=== PATIENT | female | born 1980 | race Caucasian/White ===

== ENCOUNTER 2020-04-07 10:59 | Inpatient (IN) | payer OTHER, SELFPAY ==
[2020-04-07 11:43] VITALS: BP 127/86; PULSE 76; RESP 18; TEMP 37.1; O2SAT 98; BMI 25.7
--- NOTE | 2020-04-07 11:46 | ED_ITS ---
HPI - Psych General Chief Complaint: Psychiatric Symptoms Stated Complaint: Crisis Time Seen by Provider: 04/07/20 11:46 Source: patient Mode of arrival: ambulatory Limitations: no limitations History of Present Illness MD complaint: feels depressed and anxiety Onset (ago): week(s) (few) Duration: constant History of same: Yes Relieving factors: none Exacerbating factors: none Context: significant life stressor Associated psychiatric symptoms: depression Associated symptoms: denies other symptoms Treatments prior to arrival: none Related Data Allergies Allergy/AdvReac Type Severity Reaction Status Date / Time bee pollen [BEE STINGS] Allergy Unknown ANAPHYLAXIS Unverified 02/05/20 15:41 Sulfa (Sulfonamide Allergy Unknown HIVES Unverified 02/05/20 15:41 Antibiotics) [SULFA (SULFONAMIDE ANTIBIOTICS)] Review of Systems Review of Systems: Constitutional : No Fever, No Chills ENT/Mouth : No Ear Pain, No Nasal Congestion, No sore throat Eyes: No Eye Pain, No Swelling, No Redness Cardiovascular : No Chest Pain, No SOB Respiratory : No Cough, No Sputum, No Dyspnea Gastrointestinal : No Nausea, No Vomiting, No Diarrhea, No Hematochezia, No Melena Genitourinary : No Dysuria, No Urinary Frequency, No Hematuria Musculoskeletal : No Myalgias Skin : No Skin Lesions, No rash Neuro : No Weakness, No Numbness, No Paresthesias, No Dizziness, No Headache Psych : positive Anxiety, positive Depression, no SI/HI Heme/Lymph: No Lymphadenopathy Endocrine : No Polyuria, No Polydipsia All other systems reviewed and are negative COUNT INCLUDES [facility] Past Medical History Medical History Anxiety Bowel obstruction Depression Surgical History History of hysterectomy Social History Social History (Updated 04/07/20 @ 12:04 by Ingris Gold DO) Smoking Status: Never smoker Smoked in Last 30 Days: No Use of substances other than those prescribed or required for medical reasons: No Advance Directives: No Advance Directives Information Provided: Yes Physical Exam Vital Signs: Vital Signs: Last Vital Signs Temp 98.8 F 04/07/20 11:43 Pulse 76 04/07/20 11:43 Resp 18 04/07/20 11:43 BP 127/86 04/07/20 11:43 Pulse Ox 98 04/07/20 11:43 Body Mass Index 25.7 Appearance: Alert. Oriented X3. No acute distress. Anxious Eyes: Pupils equal, round and reactive to light. ENT: Pharynx normal. Neck: Normal inspection. Neck supple. CVS: Normal heart rate and rhythm. Pulses normal. Respiratory: No respiratory distress. Breath sounds normal. Abdomen: Soft and nontender. Skin: Skin warm and dry. Normal skin color. Normal skin turgor. Extremities: No lower extremity edema. No calf ttp Neuro: Oriented X 3. No motor deficit. No sensory deficit. CN 2 -12 intact Psych: anxious depressed, no SI/HI, no AH/VH Course Course Course Narrative: plan for admit to MDM - Psych MDM Narrative Medical decision making narrative: 40 yo female with depression and anxiety here with severe anxiety and depression impacting her life and work - referred by CARE team at this time will obtain labs and consult CARE team Lab Data Result diagrams: 04/07/20 13:51 04/07/20 13:51 Discharge Plan Discharge Clinical Impression: Depression Patient Disposition: Admitted As Inpatient
[2020-04-07 14:04] LABS: MANUAL DIFF FLAG NO
[2020-04-07 14:20] LABS: Basophils Percent Auto 0.4 % (0-2); Eosinophils Absolute Auto 0.3 X10*3/uL (0.0-0.4); Eosinophils Percent Auto 3.4 % (0-4); Hematocrit 39.9 % (37-47); Hemoglobin 13.4 g/dl (12.0-16.0); Imm Gran Abs Auto 0.02 X10*3/uL (0.00-0.03); Imm Gran Pct Auto 0.3 % (0.0-0.4); Lymphocytes Absolute Auto 1.8 X10*3/uL (1.2-4.9); Mean Corpuscular HGB Conc 33.6 g/dl (31.0-35.0); Mean Corpuscular Volume 89.3 fL (80-98); Monocytes Absolute Auto 0.3 X10*3/uL (0.1-1.2); Monocytes Percent Auto 4.3 % (2-11); Neutrophils Absolute Auto 5.4 X10*3/uL (2.0-8.3); Neutrophils Percent Auto 68.6 % (45-73); Platelet Count 342 X10*3/uL (160-400); Red Blood Count 4.47 X10*6/uL (4.20-5.50); Red Cell Distribution Width 11.5 % (11.0-16.0); White Blood Count 7.9 X10*3/uL (4.8-10.8)
[2020-04-07 14:35] LABS: Anion Gap 12 (12-20); Blood Urea Nitrogen 6 mg/dL (9-16); Calcium 9.3 mg/dL (8.4-10.2); Carbon Dioxide 26 mmol/L (22-29); Chloride 100 mmol/L (96-108); Creatinine Clr Calc Pharmacy 111.8; Estimated Glomerular Filt Rate > 60; Glucose Random 138 mg/dL (60-115); Potassium 3.8 mmol/l (3.3-5.1); Sodium 134 mmol/L (135-145)
[2020-04-07 14:37] LABS: Alanine Aminotransferase 30 U/L (0-31); Albumin Level 4.1 g/dL (3.5-5.0); Alkaline Phosphatase 78 U/L (39-117); Aspartate Amino Transferase 18 U/L (5-31); Bilirubin Direct < 0.2 mg/dL (0.0-0.5); Bilirubin Total 0.4 mg/dL (0.0-1.0); Total Protein 6.3 g/dL (6.5-8.0)
[2020-04-07 14:42] VITALS: BP 101/66; PULSE 64; RESP 16; O2SAT 97
[2020-04-07 14:58] LABS: Thyroid Stimulating Hormone < 0.01 uIU/mL (0.32-4.0)
[2020-04-07 15:02] LABS: COVID-19 Test Negative (Negative)
[2020-04-07 16:05] VITALS: BP 110/64; PULSE 67; RESP 18; TEMP 37; O2SAT 98
--- NOTE | 2020-04-07 16:59 | PC.NURSE ---
Pt transferred from the main ED. Report received from Arturo. Pt cooperative with changeover. In room, calm, reading. Awaiting transfer to
--- NOTE | 2020-04-07 18:15 | PC.NURSE ---
Requesting normally prescribed PRN of gabapentin 200 MG PO for anxiety, provider notified.
[2020-04-07] MEDS: Gabapentin 100 MG CAPSULE 200 MG PO ×2 (18:35→22:25)
--- NOTE | 2020-04-07 18:38 | PC.NURSE ---
Pt agitated, punching dresser in room, I am going to loose it if I don't get any PRN medication . Given gabapentin. Currently sitting on bed. Waiting transfer to .
--- NOTE | 2020-04-07 19:04 | PC.NURSE ---
Report received. PT is sitting quietly on her bed. Waiting to be transferred to .
[2020-04-07 20:03] LABS: Amphetamine Screen Urine Not Detected (Not Detect); Barbiturates, Urine Not Detected (Not Detect); Benzodiazepines Screen Urine Not Detected (Not Detect); Cannabinoid Screen Urine POSITIVE (Not Detect); Cocaine Screen Urine Not Detected (Not Detect); Opiate Screen Urine Not Detected (Not Detect); Phencyclidine Screen Urine Not Detected (Not Detect)
[2020-04-07 22:00] LABS: Cholesterol 216 mg/dL; HDL Cholesterol 68 mg/dL; Triglycerides 433 mg/dL
[2020-04-07 22:20] LABS: TSH reflex Free T4 0.01 mIU/mL (0.32-4.0)
[2020-04-07] MEDS: Lithium Carbonate ER 450 MG TABLET.ER 900 MG PO (22:24)
[2020-04-07] MEDS: Temazepam 15 MG CAPSULE 30 MG PO (22:25)
--- NOTE | 2020-04-07 22:58 | PC.ADMIT ---
this is one of several admissions for this 40year old female. legal cv. dx bipolar d/o. was referred to by the care team, nurse to nurse collaterol information obtained prior to admission. 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 hx hysterectomy and bowel obstruction in past. identifies the use of marijuana on a weekly basis, no other drug/alcohol issues. presented as anxious and self described as ''raw'' reports high level of anxiety, impaired thinking that is interfering with functioning at work but was cooperative to admission assessment. no si or self harm attempt prior to admission. oriented to unit. safety tool completed. declined flu shot as she has already received this season.
[2020-04-08] MEDS: hydrOXYzine HCL 50 MG TABLET PO (01:28)
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
[2020-04-08 06:15] VITALS: BP 117/63; PULSE 70; RESP 16; TEMP 36.4; O2SAT 98
[2020-04-08 07:00] VITALS: BMI 25.3
[2020-04-08 08:41] LABS: Estimated Average Glucose 97 mg/dL
[2020-04-08 08:57] LABS: Alanine Aminotransferase 30 U/L (0-31); Albumin Level 3.9 g/dL (3.5-5.0); Alkaline Phosphatase 74 U/L (39-117); Anion Gap 11 (12-20); Aspartate Amino Transferase 19 U/L (5-31); Bilirubin Total 0.5 mg/dL (0.0-1.0); Blood Urea Nitrogen 7 mg/dL (9-16); Calcium 9.3 mg/dL (8.4-10.2); Carbon Dioxide 30 mmol/L (22-29); Chloride 102 mmol/L (96-108); Creatinine Clr Calc Pharmacy 119.3; Estimated Glomerular Filt Rate > 60; Glucose Fasting 97 mg/dL (60-99); Sodium 139 mmol/L (135-145); Total Protein 6.2 g/dL (6.5-8.0)
[2020-04-08] MEDS: estradioL 0.5 MG TABLET 2 MG PO (08:59)
[2020-04-08] MEDS: Lithium Carbonate ER 450 MG TABLET.ER 900 MG PO ×2 (09:00→19:58)
[2020-04-08 09:01] LABS: Cholesterol 187 mg/dL; Glucose Fasting 97 mg/dL (60-99); HDL Cholesterol 59 mg/dL; LDL Cholesterol Calculated 75 mg/dl; Triglycerides 266 mg/dL
[2020-04-08] MEDS: LORazepam 1 MG TABLET PO ×4 (11:02→19:59)
[2020-04-08] MEDS: Gabapentin 100 MG CAPSULE 200 MG PO ×2 (13:50→19:59)
[2020-04-08 18:00] VITALS: BP 128/78; PULSE 90; TEMP 36.9
[2020-04-08] MEDS: Benztropine Mesylate 0.5 MG TABLET 1 MG PO (19:58)
[2020-04-08] MEDS: HaloperidoL 5 MG TABLET PO (19:59)
--- NOTE | 2020-04-09 05:11 | P.PNPSI_ITS ---
Subjective Subjective Date of Service: 04/09/20 Reason For Visit: Crisis Subjective Notes: Conditional Voluntary Interim History: Calmer and less irritable despite milieu. Keeping to herself as advised. Feels Haldol and Loraz are helpful. Feels brittle with marked i-p sensitivity. Lipid profile improved. Li was high so a,m dose reduced. Wants to avoid ECT Medication Compliance: Yes Side effects from medications: No Attending Groups: Yes Review of Systems Review of Systems Constitutional : No Fever, No Chills ENT/Mouth : No Ear Pain, No Nasal Congestion, No sore throat Eyes: No Eye Pain, No Swelling, No Redness Cardiovascular : No Chest Pain, No SOB Respiratory : No Cough, No Sputum, No Dyspnea Gastrointestinal : No Nausea, No Vomiting, No Diarrhea, No Hematochezia, No Melena Genitourinary : No Dysuria, No Urinary Frequency, No Hematuria Musculoskeletal : No Myalgias Skin : No Skin Lesions, No rash Neuro : No Weakness, No Numbness, No Paresthesias, No Dizziness, No Headache Psych : positive Anxiety, positive Depression, no SI/HI Heme/Lymph: No Lymphadenopathy Endocrine : No Polyuria, No Polydipsia All other systems reviewed and are negative Yes all other systems are reviewed and are negative Mental Status Exam Mental Status Exam Patient Appearance: Disheveled Patient Orientation: Person, Place, Time and Situation Level of Consciousness: Awake Patient Behavior: Distractible Mood Description: Anxious, Labile and Apprehensive Affect Description: Labile and Sad Patient Cognition Impaired: No Ability to Follow Directions: Good Memory Description: Intact Diagnostics Vital Signs (24Hr): Vital Signs - 24 hr 04/08/20 06:15 04/08/20 18:00 Temperature 97.5 F 98.5 F Pulse Rate 70 90 Respiratory Rate 16 Blood Pressure 117/63 128/78 Pulse Oximetry 98 Body Mass Index 25.3 Labs Results: 04/07/20 13:51 04/08/20 07:56 Labs: Laboratory Results - last 48 hr 04/07/20 04/07/20 04/07/20 13:51 13:51 13:51 WBC 7.9 RBC 4.47 Hgb 13.4 Hct 39.9 MCV 89.3 MCH 30.0 MCHC 33.6 RDW 11.5 Plt Count 342 MPV 9.0 L Immature Gran % (Auto) 0.3 Neut % (Auto) 68.6 Lymph % (Auto) 23.0 [place] % (Auto) 4.3 Eos % (Auto) 3.4 Baso % (Auto) 0.4 Lymph # (Auto) 1.8 [place] # (Auto) 0.3 Eos # (Auto) 0.3 Baso # (Auto) 0.0 Abs Immat Gran (auto) 0.02 Absolute Neuts (auto) 5.4 Absolute Nucleated RBC 0.000 Nucleated RBC % (auto) 0.0 Sodium 134 L Potassium 3.8 Chloride 100 Carbon Dioxide 26 Anion Gap 12 BUN 6 L Creatinine 0.64 Estim Creat Clear Calc 111.8 Estimated GFR > 60 Random Glucose 138 H Fasting Glucose Estimat Average Glucose Hemoglobin A1c % Calcium 9.3 Total Bilirubin 0.4 Direct Bilirubin < 0.2 AST 18 ALT 30 Alkaline Phosphatase 78 Total Protein 6.3 L Albumin 4.1 Triglycerides Cholesterol LDL Cholesterol, Calc HDL Cholesterol TSH < 0.01 L Free T4 Urine Opiates Screen Ur Barbiturates Screen Ur Phencyclidine Scrn Ur Amphetamines Screen U Benzodiazepines Scrn [place] Urine Cocaine Screen U Marijuana (THC) Screen COVID-19 ([place]) COVID-[employer] 04/07/20 04/07/20 04/07/20 14:30 19:35 21:25 WBC RBC Hgb Hct MCV MCH MCHC RDW Plt Count MPV Immature Gran % (Auto) Neut % (Auto) Lymph % (Auto) [place] % (Auto) Eos % (Auto) Baso % (Auto) Lymph # (Auto) [place] # (Auto) Eos # (Auto) Baso # (Auto) Abs Immat Gran (auto) Absolute Neuts (auto) Absolute Nucleated RBC Nucleated RBC % (auto) Sodium Potassium Chloride Carbon Dioxide Anion Gap BUN Creatinine Estim Creat Clear Calc Estimated GFR Random Glucose Fasting Glucose Estimat Average Glucose Hemoglobin A1c % Calcium Total Bilirubin Direct Bilirubin AST ALT Alkaline Phosphatase Total Protein Albumin Triglycerides 433 Cholesterol 216 LDL Cholesterol, Calc TNP HDL Cholesterol 68 TSH Free T4 Urine Opiates Screen Not Detected Ur Barbiturates Screen Not Detected Ur Phencyclidine Scrn Not Detected Ur Amphetamines Screen Not Detected U Benzodiazepines Scrn Not Detected [place] Urine Cocaine Screen Not Detected U Marijuana (THC) Screen POSITIVE H COVID-19 ([place]) Negative COVID-19 [employer] See Note 04/07/20 04/07/20 04/08/20 21:25 21:25 07:56 WBC RBC Hgb Hct MCV MCH MCHC RDW Plt Count MPV Immature Gran % (Auto) Neut % (Auto) Lymph % (Auto) [place] % (Auto) Eos % (Auto) Baso % (Auto) Lymph # (Auto) [place] # (Auto) Eos # (Auto) Baso # (Auto) Abs Immat Gran (auto) Absolute Neuts (auto) Absolute Nucleated RBC Nucleated RBC % (auto) Sodium 139 Potassium 4.0 Chloride 102 Carbon Dioxide 30 H Anion Gap 11 L BUN 7 L Creatinine 0.60 Estim Creat Clear Calc 119.3 Estimated GFR > 60 Random Glucose Fasting Glucose 97 Estimat Average Glucose Hemoglobin A1c % Calcium 9.3 Total Bilirubin 0.5 Direct Bilirubin AST 19 ALT 30 Alkaline Phosphatase 74 Total Protein 6.2 L Albumin 3.9 Triglycerides Cholesterol LDL Cholesterol, Calc HDL Cholesterol TSH 0.01 L Free T4 1.30 Urine Opiates Screen Ur Barbiturates Screen Ur Phencyclidine Scrn Ur Amphetamines Screen U Benzodiazepines Scrn [place] 1.00 Urine Cocaine Screen U Marijuana (THC) Screen COVID-19 ([place]) COVID-[employer] 04/08/20 04/08/20 04/08/20 07:56 07:56 07:56 WBC RBC Hgb Hct MCV MCH MCHC RDW Plt Count MPV Immature Gran % (Auto) Neut % (Auto) Lymph % (Auto) [place] % (Auto) Eos % (Auto) Baso % (Auto) Lymph # (Auto) [place] # (Auto) Eos # (Auto) Baso # (Auto) Abs Immat Gran (auto) Absolute Neuts (auto) Absolute Nucleated RBC Nucleated RBC % (auto) Sodium Potassium Chloride Carbon Dioxide Anion Gap BUN Creatinine Estim Creat Clear Calc Estimated GFR Random Glucose Fasting Glucose 97 Estimat Average Glucose 97 Hemoglobin A1c % 5.0 Calcium Total Bilirubin Direct Bilirubin AST ALT Alkaline Phosphatase Total Protein Albumin Triglycerides 266 Cholesterol 187 LDL Cholesterol, Calc 75 HDL Cholesterol 59 TSH Free T4 Urine Opiates Screen Ur Barbiturates Screen Ur Phencyclidine Scrn Ur Amphetamines Screen U Benzodiazepines Scrn [place] 1.30 H Urine Cocaine Screen U Marijuana (THC) Screen COVID-19 ([place]) [employer] Medications Medications Current Medications Generic Name Dose Route Start Last Admin Trade Name Freq PRN Reason Stop Dose Admin Acetaminophen 650 mg 04/07/20 20:08 Acetaminophen 325 Mg Tablet PO Q6H PRN Headache/Pain Mild Scale (1-3) Al Hydroxide/Mg Hydroxide 30 ml 04/07/20 20:08 Magnesium Hydrox/Alum Hydrox 30 Ml Oral.Susp PO Q6H PRN Heartburn/Nausea Benztropine Mesylate 1 mg 04/08/20 21:00 04/08/20 19:58 Benztropine Mesylate 0.5 Mg Tablet PO 1 mg BID [facility] Administration Estradiol 2 mg 04/08/20 09:00 04/08/20 08:59 Estradiol 0.5 Mg Tablet PO 2 mg DAILY [facility] Administration Gabapentin 200 mg 04/08/20 15:00 04/08/20 19:59 Gabapentin 100 Mg Capsule PO 200 mg TID [facility] Administration Haloperidol 5 mg 04/08/20 21:00 04/08/20 19:59 Haloperidol 5 Mg Tablet PO 5 mg BID [facility] Administration Hydroxyzine HCl 50 mg 04/08/20 00:03 04/08/20 01:28 Hydroxyzine Hcl 50 Mg Tablet PO 50 mg BEDTIME PRN Administration Insomnia [place] Carbonate 900 mg 04/07/20 21:00 04/08/20 19:58 [place] Carbonate Er 450 Mg Tablet.Er PO 900 mg BID [facility] Administration Lorazepam 1 mg 04/08/20 09:40 04/08/20 18:33 Lorazepam 1 Mg Tablet PO 1 mg Q4H PRN Administration Anxiety Lorazepam 1 mg 04/08/20 11:10 04/08/20 19:59 Lorazepam 1 Mg Tablet PO 1 mg BID [facility] Administration Magnesium Hydroxide 30 ml 04/07/20 20:08 Milk Of Magnesia 30 Ml Oral.Susp PO DAILY PRN Constipation Pat Own Med ( 1 each 04/08/20 21:00 04/08/20 19:59 Asenapine 5mg) PO 1 each BID [facility] Administration Non-Formulary Medication 1 applic 04/07/20 20:32 Estradiol VAGINAL 2XW [facility] Temazepam 30 mg 04/07/20 20:36 04/07/20 22:25 Temazepam 15 Mg Capsule PO 30 mg BEDTIME PRN Administration Sleep Allergies Allergies Allergy/AdvReac Type Severity Reaction Status Date / Time bee pollen [BEE STINGS] Allergy Unknown ANAPHYLAXIS Verified 04/07/20 18:32 Sulfa (Sulfonamide Allergy Unknown HIVES Verified 04/07/20 18:32 Antibiotics) [SULFA (SULFONAMIDE ANTIBIOTICS)] trazodone Allergy Unknown Unknown Verified 04/08/20 00:09 Assessment & Plan Assessment & Plan (1) Bipolar affective, mixed, severe: Status: Acute Code(s): F31.63 - Bipolar disorder, current episode mixed, severe, without psychotic features Assessment and Plan: Ct current meds. Discuss case w Dr Atkins. Greater than 50% of the session was spent on counseling and/or coordination of care
[2020-04-09 06:10] VITALS: BP 104/63; PULSE 62; RESP 16; TEMP 36.2; O2SAT 98
[2020-04-09] MEDS: estradioL 0.5 MG TABLET 2 MG PO (08:37)
[2020-04-09] MEDS: Gabapentin 100 MG CAPSULE 200 MG PO ×3 (08:38→20:01)
[2020-04-09] MEDS: Benztropine Mesylate 0.5 MG TABLET 1 MG PO ×2 (08:39→20:01)
[2020-04-09] MEDS: HaloperidoL 5 MG TABLET PO ×2 (08:39→20:01)
[2020-04-09] MEDS: Lithium Carbonate ER 300 MG TABLET.ER 600 MG PO (08:44)
[2020-04-09] MEDS: LORazepam 1 MG TABLET PO ×4 (08:44→20:01)
[2020-04-09 18:00] VITALS: BP 113/62; PULSE 84; TEMP 36.8
[2020-04-09] MEDS: Lithium Carbonate ER 450 MG TABLET.ER 900 MG PO (20:01)
[2020-04-09] MEDS: Temazepam 15 MG CAPSULE 30 MG PO ×2 (21:32→22:24)
[2020-04-10 07:21] VITALS: BP 107/64; PULSE 68; TEMP 36.2
[2020-04-10] MEDS: estradioL 0.5 MG TABLET 2 MG PO (09:14)
[2020-04-10] MEDS: LORazepam 1 MG TABLET PO ×3 (09:15→20:27)
[2020-04-10] MEDS: Benztropine Mesylate 0.5 MG TABLET 1 MG PO ×2 (09:15→20:27)
[2020-04-10] MEDS: HaloperidoL 5 MG TABLET PO ×2 (09:15→20:26)
[2020-04-10] MEDS: Gabapentin 100 MG CAPSULE 200 MG PO ×3 (09:15→20:27)
[2020-04-10] MEDS: Lithium Carbonate ER 300 MG TABLET.ER 600 MG PO (09:15)
--- NOTE | 2020-04-10 11:35 | HO.PSYCHPN ---
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 Pt has insight to say when she's depressed she has trouble processing information and can misinterpret things resulting in irritability. At one point pt said that no one cares she rescinded this remark but said that while others may care, it does little to help. Pt reports she was feeling overmedicated and asked her outpt provider Dr. Atkins, to lower her meds; currently she thinks her medications might be too low and says this is the least medications i have every been on. She would like to get back on Levothyroxine; travel writer explained TSH/Lab work but pt reports she does not have a thyroid disorder (and none is listed in problem list); travel writer asked if this med was being used as an augmentation for depression but she is unsure. Pt asks for something for daytime anxiety and agrees to adding Gabapentin prn (she denies any hx of substance abuse including benzodiazapines); otherwise, she would like to continue to use the Haldol/ativan/benadryl combo she discussed with her Dr. Chand. Medication Compliance: Yes Side effects from medications: No Attending Groups: Yes Review of Systems Review of Systems No all other systems are reviewed and are negative, unobtainable due to endotracheal tube, Unobtainable due to mental condition, Unobtainable due to mental status or Other Mental Status Exam Mental Status Exam Patient Appearance: Well Grooomed and Appropriate Patient Orientation: Person, Place, Time and Situation Level of Consciousness: Awake and Appropriate Patient Behavior: Appropriate, Cooperative, Anxious and Good Eye Contact Mood Description: Constricted, Anxious and Angry Affect Description: Constricted Patient Cognition Impaired: Yes Ability to Follow Directions: Excellent Speech Pattern: Clear Hallucinations: None Delusions: Not Present Thought Process: Intact, Goal Oriented and Linear Thought Content: positive for Intact and positive for Circumstantial Depressive Symptoms: Increased Anxiety, Insomnia, Diff. Making Decisions, Increased Irritability and Hopelessness Judgement: Fair Judgement and Insight: appears intact Diagnostics Vital Signs (24Hr): Vital Signs - 24 hr 04/09/20 18:00 04/10/20 07:21 Temperature 98.3 F 97.2 F Pulse Rate 84 68 Blood Pressure 113/62 107/64 Body Mass Index 25.3 Labs Results: 04/07/20 13:51 04/08/20 07:56 Medications Medications Current Medications Generic Name Dose Route Start Last Admin Trade Name Freq PRN Reason Stop Dose Admin Acetaminophen 650 mg 04/07/20 20:08 Acetaminophen 325 Mg Tablet PO Q6H PRN Headache/Pain Mild Scale (1-3) Al Hydroxide/Mg Hydroxide 30 ml 04/07/20 20:08 Magnesium Hydrox/Alum Hydrox 30 Ml Oral.Susp PO Q6H PRN Heartburn/Nausea Benztropine Mesylate 1 mg 04/08/20 21:00 04/10/20 09:15 Benztropine Mesylate 0.5 Mg Tablet PO 1 mg BID AMARIS Administration Estradiol 2 mg 04/08/20 09:00 04/10/20 09:14 Estradiol 0.5 Mg Tablet PO 2 mg DAILY AMARIS Administration Gabapentin 200 mg 04/08/20 15:00 04/10/20 09:15 Gabapentin 100 Mg Capsule PO 200 mg TID AMARIS Administration Haloperidol 5 mg 04/08/20 21:00 04/10/20 09:15 Haloperidol 5 Mg Tablet PO 5 mg BID AMARIS Administration Hydroxyzine HCl 50 mg 04/08/20 00:03 04/08/20 01:28 Hydroxyzine Hcl 50 Mg Tablet PO 50 mg BEDTIME PRN Administration Insomnia [place] Carbonate 900 mg 04/09/20 21:00 04/09/20 20:01 [place] Carbonate Er 450 Mg Tablet.Er PO 900 mg BEDTIME AMARIS Administration [place] Carbonate 600 mg 04/09/20 09:00 04/10/20 09:15 [place] Carbonate Er 300 Mg Tablet.Er PO 600 mg DAILY AMARIS Administration Lorazepam 1 mg 04/08/20 09:40 04/09/20 19:24 Lorazepam 1 Mg Tablet PO 1 mg Q4H PRN Administration Anxiety Lorazepam 1 mg 04/08/20 11:10 04/10/20 09:15 Lorazepam 1 Mg Tablet PO 1 mg BID AMARIS Administration Magnesium Hydroxide 30 ml 04/07/20 20:08 Milk Of Magnesia 30 Ml Oral.Susp PO DAILY PRN Constipation Pat Own Med ( 1 each 04/08/20:00 04/10/20 09:14 Asenapine 5mg) PO 1 each BID AMARIS Administration Non-Formulary Medication 1 applic 04/07/20 20:32 Estradiol VAGINAL 2XW AMARIS Temazepam 30 mg 04/07/20 20:36 11 22:24 Temazepam 15 Mg Capsule PO 30 mg BEDTIME PRN Administration Sleep Allergies Allergies Allergy/AdvReac Type Severity Reaction Status Date / Time bee pollen [BEE STINGS] Allergy Unknown ANAPHYLAXIS Verified 04/07/20 18:32 Sulfa (Sulfonamide Allergy Unknown HIVES Verified 04/07/20 18:32 Antibiotics) [SULFA (SULFONAMIDE ANTIBIOTICS)] trazodone Allergy Unknown Unknown Verified 04/08/20 00:09 Assessment & Plan 40 yo female with hx of bipolar depression Pt remains with depression and anxiety but is stable -Will add Gabapentin 100mg TID prn; pt says 200mg TID scheduled does help some, so will add low dose prn which can be increased further as clinically determined -Will continue to hold levothyroxine; it is likely that this is being used as an augmentor for depression; review of notes indicates primary team is discussing medication regimen with pt's outpt psychiatrist Dr. Atkins and so will thus defer -Otherwise, continue with Primary teams treatment plan
[2020-04-10 16:42] VITALS: BP 138/78; PULSE 78; TEMP 36.8
[2020-04-10 18:00] VITALS: BP 125/90; PULSE 89; TEMP 36.8
[2020-04-10] MEDS: Lithium Carbonate ER 450 MG TABLET.ER 900 MG PO (20:27)
[2020-04-10] MEDS: Temazepam 15 MG CAPSULE 30 MG PO (20:36)
[2020-04-10] MEDS: hydrOXYzine HCL 50 MG TABLET PO (21:28)
[2020-04-11] MEDS: LORazepam 1 MG TABLET PO ×5 (00:44→20:24)
[2020-04-11 06:00] VITALS: BP 106/61; PULSE 60; TEMP 36.6
[2020-04-11] MEDS: Lithium Carbonate ER 300 MG TABLET.ER 600 MG PO (08:57)
[2020-04-11] MEDS: HaloperidoL 5 MG TABLET PO ×4 (08:58→20:26)
[2020-04-11] MEDS: estradioL 0.5 MG TABLET 2 MG PO (08:58)
[2020-04-11] MEDS: Benztropine Mesylate 0.5 MG TABLET 1 MG PO ×2 (08:58→20:22)
[2020-04-11] MEDS: Gabapentin 100 MG CAPSULE 200 MG PO ×6 (08:58→20:24)
--- NOTE | 2020-04-11 10:31 | P.PNPSI_ITS ---
Subjective Subjective Date of Service: 04/11/20 Reason For Visit: Crisis Interim History: Vitals reviewed: WNL Labs reviewed Pt seen, chart reviewed and case discussed with nursing staff Pt is pleasant, calm and cooperative on approach Pt reports she slept better last night. She says she is still angry, however and shared that she was adopted and suspects that it's likely due to past ch ildhood/developmental trauma. Pt shared more about struggles at work and how she frequently gets triggered. She also agreed that she's accomplished a lot in her life despite struggles and that pushing forward is sometimes the only thing one can do. She continues to demonstrate insight explaining how her depression/anxiety makes it hard to think clearly sometimes. Pt says that prn gabapentin 100mg did not do much so agrees to increase to 200mg. Staff reports that pt walked in her sleep last night and used toliet in peers bathroom; pt has no memory of this. Medication Compliance: Yes Side effects from medications: No Attending Groups: Yes Mental Status Exam Mental Status Exam Patient Appearance: Well Grooomed and Appropriate Level of Consciousness: Awake and Appropriate Patient Behavior: Cooperative and Suspicious Mood Description: Angry Affect Description: Constricted Ability to Follow Directions: Good Speech Pattern: Clear and Appropriate Hallucinations: None Delusions: Not Present Thought Process: Intact and Linear Thought Content: positive for Intact, positive for Goal Oriented, positive for Linear and positive for Logical Judgement: Fair Judgement and Insight: appears intact Diagnostics Vital Signs (24Hr): Vital Signs - 24 hr 04/10/20 16:42 04/10/20 18:00 04/11/20 06:00 Temperature 98.2 F 98.2 F 97.8 F Pulse Rate 78 89 60 Blood Pressure 138/78 125/90 H 106/61 Body Mass Index 25.3 Labs Results: 04/07/20 13:51 04/08/20 07:56 Medications Medications Current Medications Generic Name Dose Route Start Last Admin Trade Name Freq PRN Reason Stop Dose Admin Acetaminophen 650 mg 04/07/20 20:08 Acetaminophen 325 Mg Tablet PO Q6H PRN Headache/Pain Mild Scale (1-3) Al Hydroxide/Mg Hydroxide 30 ml 04/07/20 20:08 Magnesium Hydrox/Alum Hydrox 30 Ml Oral.Susp PO Q6H PRN Heartburn/Nausea Benztropine Mesylate 1 mg 04/08/20 21:00 04/11/20 08:58 Benztropine Mesylate 0.5 Mg Tablet PO 1 mg BID AMARIS Administration Estradiol 2 mg 04/08/20 09:00 04/11/20 08:58 Estradiol 0.5 Mg Tablet PO 2 mg DAILY AMARIS Administration Gabapentin 200 mg 04/08/20 15:00 04/11/20 08:58 Gabapentin 100 Mg Capsule PO 200 mg TID AMARIS Administration Gabapentin 100 mg 04/10/20 11:33 Gabapentin 100 Mg Capsule PO TID PRN breakthrough anxiety Haloperidol 5 mg 04/08/20 21:00 04/11/20 08:58 Haloperidol 5 Mg Tablet PO 5 mg BID AMARIS Administration Hydroxyzine HCl 50 mg 04/08/20 00:03 04/10/20 21:28 Hydroxyzine Hcl 50 Mg Tablet PO 50 mg BEDTIME PRN Administration Insomnia [place] Carbonate 900 mg 04/09/20 21:00 04/10/20 20:27 [place] Carbonate Er 450 Mg Tablet.Er PO 900 mg BEDTIME AMARIS Administration [place] Carbonate 600 mg 04/09/20 09:00 04/11/20 08:57 [place] Carbon[place] Er 300 Mg Tablet.Er PO 600 mg DAILY AMARIS Administration Lorazepam 1 mg 04/08/20 09:40 04/11/20 00:44 Lorazepam 1 Mg Tablet PO 1 mg Q4H PRN Administration Anxiety Lorazepam 1 mg 04/08/20 11:10 04/11/20 08:58 Lorazepam 1 Mg Tablet PO 1 mg BID AMARIS Administration Magnesium Hydroxide 30 ml 04/07/20 20:08 Milk Of Magnesia 30 Ml Oral.Susp PO DAILY PRN Constipation Pat Own Med ( 1 each 04/08/20 21:00 04/11/20 08:57 Asenapine 5mg) PO 1 each BID AMARIS Administration Non-Formulary Medication 1 applic 04/07/20 20:32 Estradiol VAGINAL 2XW AMARIS Temazepam 30 mg 04/07/20 20:36 04/10/20 20:36 Temazepam 15 Mg Capsule PO 30 mg BEDTIME PRN Administration Sleep Allergies Allergies Allergy/AdvReac Type Severity Reaction Status Date / Time bee pollen [BEE STINGS] Allergy Unknown ANAPHYLAXIS Verified 04/07/20 18:32 Sulfa (Sulfonamide Allergy Unknown HIVES Verified 04/07/20 18:32 Antibiotics) [SULFA (SULFONAMIDE ANTIBIOTICS)] trazodone Allergy Unknown Unknown Verified 04/08/20 00:09 Assessment & Plan 40 yo female with hx of bipolar depression Pt remains with depression, anxiety, anger but is stable -Primary team to R/O Parasomnia -Increased prn Gabapentin to 200mg TID prn -Will continue to hold levothyroxine; it is likely that this is being used as an augmentor for depression; review of notes indicates primary team is discussing medication regimen with pt's outpt psychiatrist Dr. Atkins and so will thus defer -Otherwise, continue with Primary teams treatment plan Greater than 50% of the session was spent on counseling and/or coordination of care
[2020-04-11 18:00] VITALS: BP 122/84; PULSE 87; TEMP 36.2
[2020-04-11] MEDS: Lithium Carbonate ER 450 MG TABLET.ER 900 MG PO (20:23)
[2020-04-11] MEDS: Temazepam 15 MG CAPSULE 30 MG PO (21:03)
[2020-04-12] MEDS: LORazepam 1 MG TABLET PO ×6 (00:11→20:58)
[2020-04-12] MEDS: hydrOXYzine HCL 50 MG TABLET PO (00:11)
[2020-04-12] MEDS: HaloperidoL 5 MG TABLET PO ×6 (00:11→22:24)
[2020-04-12] MEDS: Gabapentin 100 MG CAPSULE 200 MG PO ×4 (01:50→20:57)
[2020-04-12 06:45] VITALS: BP 107/68; PULSE 59; RESP 16; TEMP 36.4
--- NOTE | 2020-04-12 07:51 | P.PNPSI_ITS ---
Subjective Subjective Reason For Visit: Crisis Interim History: Vitals reviewed: WNL Labs reviewed Pt seen, chart reviewed and case discussed with nursing staff Weekend was diificult. Experiences intense irritability, misinterprets staff interactions. SI + but no intent. No one cares/no one understands . I dont know if anything will help. Got angry as we discussed med choices. Later Case DW Dr Atkins: few good med options. Saphris taper if pt agrees. Ct Haldol/Loraz Review of Systems Review of Systems Constitutional : No Fever, No Chills ENT/Mouth : No Ear Pain, No Nasal Congestion, No sore throat Eyes: No Eye Pain, No Swelling, No Redness Cardiovascular : No Chest Pain, No SOB Respiratory : No Cough, No Sputum, No Dyspnea Gastrointestinal : No Nausea, No Vomiting, No Diarrhea, No Hematochezia, No Melena Genitourinary : No Dysuria, No Urinary Frequency, No Hematuria Musculoskeletal : No Myalgias Skin : No Skin Lesions, No rash Neuro : No Weakness, No Numbness, No Paresthesias, No Dizziness, No Headache Psych : positive Anxiety, positive Depression, no SI/HI Heme/Lymph: No Lymphadenopathy Endocrine : No Polyuria, No Polydipsia All other systems reviewed and are negative Yes all other systems are reviewed and are negative Mental Status Exam Mental Status Exam Patient Appearance: Well Grooomed and Appropriate Patient Orientation: Person, Place, Time and Situation Level of Consciousness: Awake and Appropriate Patient Behavior: Cooperative and Suspicious Mood Description: Angry Affect Description: Constricted Patient Cognition Impaired: Yes Ability to Follow Directions: Good Speech Pattern: Clear and Appropriate Memory Description: Intact Diagnostics Vital Signs (24Hr): Vital Signs - 24 hr 04/11/20 18:00 04/12/20 06:45 Temperature 97.2 F 97.6 F Pulse Rate 87 59 Respiratory Rate 16 Blood Pressure 122/84 107/68 Body Mass Index 25.3 Labs Results: 04/07/20 13:51 04/08/20 07:56 Medications Medications Current Medications Generic Name Dose Route Start Last Admin Trade Name Freq PRN Reason Stop Dose Admin Acetaminophen 650 mg 04/07/20 20:08 Acetaminophen 325 Mg Tablet PO Q6H PRN Headache/Pain Mild Scale (1-3) Al Hydroxide/Mg Hydroxide 30 ml 04/07/20 20:08 Magnesium Hydrox/Alum Hydrox 30 Ml Oral.Susp PO Q6H PRN Heartburn/Nausea Benztropine Mesylate 1 mg 04/08/20 21:00 04/11/20 20:22 Benztropine Mesylate 0.5 Mg Tablet PO 1 mg BID AMARIS Administration Estradiol 2 mg 04/08/20 09:00 04/11/20 08:58 Estradiol 0.5 Mg Tablet PO 2 mg DAILY AMARIS Administration Gabapentin 200 mg 04/08/20 15:00 04/11/20 20:24 Gabapentin 100 Mg Capsule PO 200 mg TID AMARIS Administration Gabapentin 200 mg 04/11/20 10:31 04/12/20 01:50 Gabapentin 100 Mg Capsule PO 200 mg TID PRN Administration breakthrough anxiety Haloperidol 5 mg 04/08/20 21:00 04/11/20 20:26 Haloperidol 5 Mg Tablet PO 5 mg BID AMARIS Administration Haloperidol 5 mg 04/11/20 10:45 04/12/20 00:11 Haloperidol 5 Mg Tablet PO 5 mg BID PRN Administration agitation Hydroxyzine HCl 50 mg 04/08/20 00:03 04/12/20 00:11 Hydroxyzine Hcl 50 Mg Tablet PO 50 mg BEDTIME PRN Administration Insomnia [place] Carbonate 900 mg 04/09/20 21:00 04/11/20 20:23 [place] Carbonate Er 450 Mg Tablet.Er PO 900 mg BEDTIME AMARIS Administration [place] Carbonate 600 mg 04/09/20 09:00 04/11/20 08:57 [place] Carbonate Er 300 Mg Tablet.Er PO 600 mg DAILY AMARIS Administration Lorazepam 1 mg 04/08/20 09:40 04/12/20 00:11 Lorazepam 1 Mg Tablet PO 1 mg Q4H PRN Administration Anxiety Lorazepam 1 mg 04/08/20 11:10 04/11/20 20:24 Lorazepam 1 Mg Tablet PO 1 mg BID AMARIS Administration Magnesium Hydroxide 30 ml 04/07/20 20:08 Milk Of Magnesia 30 Ml Oral.Susp PO DAILY PRN Constipation Pat Own Med ( 1 each 04/08/20 21:00 04/11/20 20:41 Asenapine 5mg) PO 1 each BID AMARIS Administration Non-Formulary Medication 1 applic 04/07/20 20:32 Estradiol VAGINAL 2XW AMARIS Temazepam 30 mg 04/07/20 20:36 04/11/20 21:03 Temazepam 15 Mg Capsule PO 30 mg BEDTIME PRN Administration Sleep Allergies Allergies Allergy/AdvReac Type Severity Reaction Status Date / Time bee pollen [BEE STINGS] Allergy Unknown ANAPHYLAXIS Verified 04/07/20 18:32 Sulfa (Sulfonamide Allergy Unknown HIVES Verified 04/07/20 18:32 Antibiotics) [SULFA (SULFONAMIDE ANTIBIOTICS)] trazodone Allergy Unknown Unknown Verified 04/08/20 00:09 Assessment & Plan Assessment & Plan (1) Bipolar affective, mixed, severe: Status: Acute Code(s): F31.63 - Bipolar disorder, current episode mixed, severe, without psychotic features Assessment and Plan: Ct current meds. Discussed case w Dr Atkins. Increase dose of Haldol/Lorazepam Greater than 50% of the session was spent on counseling and/or coordination of care
[2020-04-12] MEDS: Lithium Carbonate ER 300 MG TABLET.ER 600 MG PO (08:48)
[2020-04-12] MEDS: Benztropine Mesylate 0.5 MG TABLET 1 MG PO ×3 (08:49→20:57)
[2020-04-12] MEDS: estradioL 0.5 MG TABLET 2 MG PO (08:49)
[2020-04-12 18:00] VITALS: BP 124/68; PULSE 95; TEMP 36.8
[2020-04-12 19:43] LABS: Thyroid Stimulating Hormone 0.03 uIU/mL (0.32-4.0)
[2020-04-12] MEDS: Lithium Carbonate ER 450 MG TABLET.ER 900 MG PO (20:55)
[2020-04-12] MEDS: Temazepam 15 MG CAPSULE 30 MG PO (21:06)
[2020-04-13] MEDS: hydrOXYzine HCL 50 MG TABLET PO (00:03)
[2020-04-13] MEDS: Gabapentin 100 MG CAPSULE 200 MG PO ×4 (00:04→20:48)
[2020-04-13] MEDS: LORazepam 1 MG TABLET PO ×4 (01:58→20:49)
--- NOTE | 2020-04-13 05:09 | HO.PSYCHPN ---
Subjective Subjective Reason For Visit: Crisis Interim History: Continues to be explosive. Got hostile with TW as we discussed past 24 hours. Punched the table several times. Poor impulse control.Experiences intense irritability, misinterprets staff interactions. SI + but no intent. No one cares/no one understands . I feel judged.. I dont know if anything will help. Got angry as we discussed med choices. I reviewed labs and TSH w her. Later Case DW Dr Atkins: few good med options. Saphris increase per pt demand Ct Haldol/Loraz Review of Systems Review of Systems Yes all other systems are reviewed and are negative Mental Status Exam Mental Status Exam Patient Appearance: Well Grooomed and Appropriate Patient Orientation: Person, Place, Time and Situation Level of Consciousness: Awake and Appropriate Patient Behavior: Cooperative, Suspicious, Restless and Impulsive Mood Description: Labile and Angry Affect Description: Constricted and Hostile Patient Cognition Impaired: Yes Ability to Follow Directions: Good Speech Pattern: Clear and Appropriate Memory Description: Intact Diagnostics Vital Signs (24Hr): Vital Signs - 24 hr 04/12/20 06:45 04/12/20 18:00 Temperature 97.6 F 98.2 F Pulse Rate 59 95 Respiratory Rate 16 Blood Pressure 107/68 124/68 Body Mass Index 25.3 Labs Results: 04/07/20 13:51 04/08/20 07:56 Labs: Laboratory Results - last 48 hr 04/12/20 04/12/20 07:55 08:10 TSH 0.03 L [place] 0.90 Medications Medications Current Medications Generic Name Dose Route Start Last Admin Trade Name Freq PRN Reason Stop Dose Admin Acetaminophen 650 mg 04/07/20 20:08 Acetaminophen 325 Mg Tablet PO Q6H PRN Headache/Pain Mild Scale (1-3) Al Hydroxide/Mg Hydroxide 30 ml 04/07/20 20:08 Magnesium Hydrox/Alum Hydrox 30 Ml Oral.Susp PO Q6H PRN Heartburn/Nausea Benztropine Mesylate 1 mg 04/12/20 15:00 04/12/20 20:57 Benztropine Mesylate 0.5 Mg Tablet PO 1 mg TID AMARIS Administration Estradiol 2 mg 04/08/20 09:00 04/12/20 08:49 Estradiol 0.5 Mg Tablet PO 2 mg DAILY AMARIS Administration Gabapentin 200 mg 04/08/20 15:00 04/12/20 20:57 Gabapentin 100 Mg Capsule PO 200 mg TID AMARIS Administration Gabapentin 200 mg 04/11/20 10:31 04/13/20 00:04 Gabapentin 100 Mg Capsule PO 200 mg TID PRN Administration breakthrough anxiety Haloperidol 5 mg 04/11/20 10:45 04/12/20 22:24 Haloperidol 5 Mg Tablet PO 5 mg BID PRN Administration agitation Haloperidol 5 mg 04/12/20 15:00 04/12/20 20:57 Haloperidol 5 Mg Tablet PO 5 mg TID AMARIS Administration Hydroxyzine HCl 50 mg 04/08/20 00:03 04/13/20 00:03 Hydroxyzine Hcl 50 Mg Tablet PO 50 mg BEDTIME PRN Administration Insomnia [place] Carbonate 900 mg 04/09/20 21:00 04/12/20 20:55 [place] Carbonate Er 450 Mg Tablet.Er PO 900 mg BEDTIME AMARIS Administration [place] Carbonate 600 mg 04/09/20 09:00 04/12/20 08:48 [place] Carbonate Er 300 Mg Tablet.Er PO 600 mg DAILY AMARIS Administration Lorazepam 1 mg 04/08/20 09:40 04/13/20 01:58 Lorazepam 1 Mg Tablet PO 1 mg Q4H PRN Administration Anxiety Lorazepam 1 mg 04/12/20 15:00 04/12/20 20:58 Lorazepam 1 Mg Tablet PO 1 mg TID AMARIS Administration Magnesium Hydroxide 30 ml 04/07/20 20:08 Milk Of Magnesia 30 Ml Oral.Susp PO DAILY PRN Constipation Pat Own Med ( 1 each 04/08/20 21:00 04/12/20 21:11 Asenapine 5mg) PO 1 each BID AMARIS Administration Non-Formulary Medication 1 applic 04/07/20 20:32 Estradiol VAGINAL 2XW AMARIS Temazepam 30 mg 04/12/20 20:37 04/12/20 21:06 Temazepam 15 Mg Capsule PO 30 mg BEDTIME PRN Administration Sleep Allergies Allergies Allergy/AdvReac Type Severity Reaction Status Date / Time bee pollen [BEE STINGS] Allergy Unknown ANAPHYLAXIS Verified 04/07/20 18:32 Sulfa (Sulfonamide Allergy Unknown HIVES Verified 04/07/20 18:32 Antibiotics) [SULFA (SULFONAMIDE ANTIBIOTICS)] trazodone Allergy Unknown Unknown Verified 04/08/20 00:09 Assessment & Plan Assessment & Plan (1) Bipolar affective, mixed, severe: Status: Acute Code(s): F31.63 - Bipolar disorder, current episode mixed, severe, without psychotic features Assessment and Plan: Ct current meds. Discussed case w Dr Atkins. Increase dose of Haldol/Lorazepam Increase Saphris Greater than 50% of the session was spent on counseling and/or coordination of care
[2020-04-13] MEDS: estradioL 0.5 MG TABLET 2 MG PO (08:47)
[2020-04-13] MEDS: Lithium Carbonate ER 300 MG TABLET.ER 600 MG PO (08:47)
[2020-04-13] MEDS: Benztropine Mesylate 0.5 MG TABLET 1 MG PO ×3 (08:47→20:49)
[2020-04-13] MEDS: HaloperidoL 5 MG TABLET PO ×4 (08:48→20:49)
[2020-04-13 09:41] VITALS: BP 120/69; PULSE 91; RESP 18; TEMP 37.1; O2SAT 99
[2020-04-13] MEDS: lamoTRIgine 100 MG TABLET PO (10:20)
[2020-04-13 18:00] VITALS: BP 118/82; PULSE 81; TEMP 36.7
[2020-04-13] MEDS: Lithium Carbonate ER 450 MG TABLET.ER 900 MG PO (20:49)
[2020-04-13] MEDS: Temazepam 15 MG CAPSULE 30 MG PO (20:49)
[2020-04-14 04:15] VITALS: BP 119/77; PULSE 86; RESP 16; TEMP 36.6
--- NOTE | 2020-04-14 05:27 | P.PNPSI_ITS ---
Subjective Subjective Date of Service: 04/15/20 Reason For Visit: Crisis Interim History: Continues to be explosive. Got hostile with TW as we discussed past 24 hrs. Poor impulse control.Experiences intense irritability, misinterprets staff interactions. SI + but no intent. No one cares/no one understands . I feel judged.. I dont know if anything will help. Got angry as we discussed med choices. Briefly brought by ECT by this administrative underwriter. Pt was upset but reassured we will give meds more time. Review of Systems Review of Systems All other systems reviewed and are negative Mental Status Exam Mental Status Exam Patient Appearance: Well Grooomed and Appropriate Patient Orientation: Person, Place, Time and Situation Level of Consciousness: Awake and Appropriate Patient Behavior: Cooperative, Suspicious, Restless and Impulsive Mood Description: Labile and Angry Affect Description: Constricted and Hostile Patient Cognition Impaired: Yes Ability to Follow Directions: Good Speech Pattern: Clear and Appropriate Memory Description: Intact Diagnostics Vital Signs (24Hr): Vital Signs - 24 hr 04/13/20 09:41 04/13/20 18:00 04/14/20 04:15 Temperature 98.7 F 98.1 F 97.9 F Pulse Rate 91 81 86 Respiratory Rate 18 16 Blood Pressure 120/69 118/82 119/77 Pulse Oximetry 99 Body Mass Index 25.3 Labs Results: 04/07/20 13:51 04/08/20 07:56 Labs: Laboratory Results - last 48 hr 04/12/20 04/12/20 07:55 08:10 TSH 0.03 L [place] 0.90 Medications Medications Current Medications Generic Name Dose Route Start Last Admin Trade Name Randy PRN Reason Stop Dose Admin Acetaminophen 650 mg 04/07/20 20:08 Acetaminophen 325 Mg Tablet PO Q6H PRN Headache/Pain Mild Scale (1-3) Al Hydroxide/Mg Hydroxide 30 ml 04/07/20 20:08 Magnesium Hydrox/Alum Hydrox 30 Ml Oral.Susp PO Q6H PRN Heartburn/Nausea Benztropine Mesylate 1 mg 04/12/20 15:00 04/13/20 20:49 Benztropine Mesylate 0.5 Mg Tablet PO 1 mg TID AMARIS Administration Estradiol 2 mg 04/08/20 09:00 04/13/20 08:47 Estradiol 0.5 Mg Tablet PO 2 mg DAILY AMARIS Administration Gabapentin 200 mg 04/08/20 15:00 04/13/20 20:48 Gabapentin 100 Mg Capsule PO 200 mg TID AMARIS Administration Gabapentin 200 mg 04/11/20 10:31 04/13/20 00:04 Gabapentin 100 Mg Capsule PO 200 mg TID PRN Administration breakthrough anxiety Haloperidol 5 mg 04/11/20 10:45 04/13/20 09:38 Haloperidol 5 Mg Tablet PO 5 mg BID PRN Administration agitation Haloperidol 5 mg 04/12/20 15:00 04/13/20 20:49 Haloperidol 5 Mg Tablet PO 5 mg TID AMARIS Administration Hydroxyzine HCl 50 mg 04/08/20 00:03 04/13/20 00:03 Hydroxyzine Hcl 50 Mg Tablet PO 50 mg BEDTIME PRN Administration Insomnia Lamotrigine 100 mg 04/13/20 10:10 04/13/20 10:20 Lamotrigine 100 Mg Tablet PO 100 mg DAILY AMARIS Administration [place] Carbonate 900 mg 04/09/20 21:00 04/13/20 20:49 [place] Carbonate Er 450 Mg Tablet.Er PO 900 mg BEDTIME AMARIS Administration [place] Carbonate 600 mg 04/09/20 09:00 04/13/20 08:47 [place] Carbonate Er 300 Mg Tablet.Er PO 600 mg DAILY AMARIS Administration Lorazepam 1 mg 04/08/20 09:40 04/13/20 01:58 Lorazepam 1 Mg Tablet PO 1 mg Q4H PRN Administration Anxiety Lorazepam 1 mg 04/12/20 15:00 04/13/20 20:49 Lorazepam 1 Mg Tablet PO 1 mg TID AMARIS Administration Magnesium Hydroxide 30 ml 04/07/20 20:08 Milk Of Magnesia 30 Ml Oral.Susp PO DAILY PRN Constipation Non-Formulary Medication 1 applic 04/07/20 20:32 Estradiol VAGINAL 2XW [facility] Patient Own 2 each 04/13/20 21:00 04/13/20 20:55 Medication ( PO 2 each Asenapine 5 Mg) BID AMARIS Administration Temazepam 30 mg 04/12/20 20:37 04/13/20 20:49 Temazepam 15 Mg Capsule PO 30 mg BEDTIME PRN Administration Sleep Allergies Allergies Allergy/AdvReac Type Severity Reaction Status Date / Time bee pollen [BEE STINGS] Allergy Unknown ANAPHYLAXIS Verified 04/07/20 18:32 Sulfa (Sulfonamide Allergy Unknown HIVES Verified 04/07/20 18:32 Antibiotics) [SULFA (SULFONAMIDE ANTIBIOTICS)] trazodone Allergy Unknown Unknown Verified 04/08/20 00:09 Assessment & Plan Assessment & Plan (1) Bipolar affective, mixed, severe: Status: Acute Code(s): F31.63 - Bipolar disorder, current episode mixed, severe, without psychotic features Assessment and Plan: Ct current meds. Discussed case w Dr Atkins Ct Haldol/Lorazepam Increase Saphris Greater than 50% of the session was spent on counseling and/or coordination of care
[2020-04-14] MEDS: estradioL 0.5 MG TABLET 2 MG PO (08:40)
[2020-04-14] MEDS: Gabapentin 100 MG CAPSULE 200 MG PO ×3 (08:41→20:06)
[2020-04-14] MEDS: lamoTRIgine 100 MG TABLET PO (08:41)
[2020-04-14] MEDS: LORazepam 1 MG TABLET PO ×4 (08:41→21:35)
[2020-04-14] MEDS: HaloperidoL 5 MG TABLET PO ×3 (08:41→20:05)
[2020-04-14] MEDS: Benztropine Mesylate 0.5 MG TABLET 1 MG PO ×3 (08:41→20:05)
[2020-04-14] MEDS: Lithium Carbonate ER 300 MG TABLET.ER 600 MG PO (08:41)
[2020-04-14] MEDS: Milk of Magnesia 30 ML ORAL.SUSP PO (10:09)
[2020-04-14 18:00] VITALS: BP 114/74; PULSE 83; TEMP 36.4
[2020-04-14] MEDS: Temazepam 15 MG CAPSULE 30 MG PO (20:04)
[2020-04-14] MEDS: Lithium Carbonate ER 450 MG TABLET.ER 900 MG PO (20:05)
[2020-04-14] MEDS: hydrOXYzine HCL 50 MG TABLET PO (21:33)
[2020-04-15] MEDS: HaloperidoL 5 MG TABLET PO ×5 (00:04→20:28)
[2020-04-15 06:15] VITALS: BP 104/60; PULSE 67; RESP 16; TEMP 36.4; O2SAT 98
[2020-04-15] MEDS: estradioL 0.5 MG TABLET 2 MG PO (08:37)
[2020-04-15] MEDS: Benztropine Mesylate 0.5 MG TABLET 1 MG PO ×3 (08:37→20:27)
[2020-04-15] MEDS: Gabapentin 100 MG CAPSULE 200 MG PO (08:38)
[2020-04-15] MEDS: Lithium Carbonate ER 300 MG TABLET.ER 600 MG PO (08:38)
[2020-04-15] MEDS: LORazepam 1 MG TABLET PO ×3 (08:39→20:28)
[2020-04-15 09:18] VITALS: BMI 25.1
[2020-04-15] MEDS: Gabapentin 300 MG CAPSULE PO ×3 (11:43→20:27)
--- NOTE | 2020-04-15 13:48 | HO.PSYCHPN ---
Subjective Subjective Date of Service: 04/15/20 Reason For Visit: Crisis Subjective Notes: Conditional Voluntary Interim History: Tamara was initially very agitated and irritable but she quickly settled when she felt validated and supported. She spoke of the way she feels trapped at work and that the demands on her are impossible. She requests an increase in gabapentin Medication Compliance: Yes Side effects from medications: No Attending Groups: Yes Review of Systems Acute medical concerns: No Medical Review of Systems: unchanged Mental Status Exam Mental Status Exam Patient Appearance: Well Grooomed and Appropriate Patient Orientation: Person, Place, Time and Situation Level of Consciousness: Awake and Appropriate Patient Behavior: Cooperative and Suspicious Mood Description: Labile Affect Description: Constricted and Hostile (at times) Patient Cognition Impaired: Yes Ability to Follow Directions: Good Speech Pattern: Clear and Appropriate Memory Description: Intact Hallucinations: None Delusions: Not Present Thought Process: Intact Thought Content: positive for Intact, negative for Suicidal Ideation and negative for Homicidal Ideation Judgement: Fair Diagnostics Vital Signs (24Hr): Vital Signs - 24 hr 04/14/20 18:00 04/15/20 06:15 Temperature 97.5 F 97.5 F Pulse Rate 83 67 Respiratory Rate 16 Blood Pressure 114/74 104/60 Pulse Oximetry 98 Body Mass Index 25.1 Labs Results: 04/07/20 13:51 04/08/20 07:56 Medications Medications Current Medications Generic Name Dose Route Start Last Admin Trade Name Freq PRN Reason Stop Dose Admin Acetaminophen 650 mg 04/07/20 20:08 Acetaminophen 325 Mg Tablet PO Q6H PRN Headache/Pain Mild Scale (1-3) Al Hydroxide/Mg Hydroxide 30 ml 04/07/20 20:08 Magnesium Hydrox/Alum Hydrox 30 Ml Oral.Susp PO Q6H PRN Heartburn/Nausea Benztropine Mesylate 1 mg 04/12/20 15:00 04/15/20 08:37 Benztropine Mesylate 0.5 Mg Tablet PO 1 mg TID AMARIS Administration Estradiol 2 mg 04/08/20 09:00 04/15/20 08:37 Estradiol 0.5 Mg Tablet PO 2 mg DAILY AMARIS Administration Gabapentin 300 mg 04/15/20 15:00 Gabapentin 300 Mg Capsule PO TID AMARIS Gabapentin 300 mg 04/15/20 11:21 04/15/20 11:43 Gabapentin 300 Mg Capsule PO 300 mg TID PRN Administration breakthrough anxiety Haloperidol 5 mg 04/11/20 10:45 04/15/20 00:04 Haloperidol 5 Mg Tablet PO 5 mg BID PRN Administration agitation Haloperidol 5 mg 04/12/20 15:00 04/15/20 08:38 Haloperidol 5 Mg Tablet PO 5 mg TID AMARIS Administration Hydroxyzine HCl 50 mg 04/08/20 00:03 04/14/20 21:33 Hydroxyzine Hcl 50 Mg Tablet PO 50 mg BEDTIME PRN Administration Insomnia Lamotrigine 100 mg 04/15/20 21:00 Lamotrigine 100 Mg Tablet PO BEDTIME AMARIS [place] Carbonate 900 mg 04/09/20 21:00 04/14/20 20:05 [place] Carbonate Er 450 Mg Tablet.Er PO 900 mg BEDTIME AMARIS Administration [place] Carbonate 600 mg 04/09/20 09:00 04/15/20 08:38 [place] Carbonate Er 300 Mg Tablet.Er PO 600 mg DAILY AMARIS Administration Lorazepam 1 mg 04/08/20 09:40 04/14/20 21:35 Lorazepam 1 Mg Tablet PO 1 mg Q4H PRN Administration Anxiety Lorazepam 1 mg 04/12/20 15:00 04/15/20 08:39 Lorazepam 1 Mg Tablet PO 1 mg TID [facility] Administration Magnesium Hydroxide 30 ml 04/07/20 20:08 04/14/20 10:09 Milk Of Magnesia 30 Ml Oral.Susp PO 30 ml DAILY PRN Administration Constipation Non-Formulary Medication 1 applic 04/07/20 20:32 Estradiol VAGINAL 2XW [facility] Patient Own 2 each 04/13/20 21:00 04/15/20 08:39 Medication ( PO 2 each Asenapine 5 Mg) BID AMARIS Administration Temazepam 30 mg 04/12/20 20:37 04/14/20 20:04 Temazepam 15 Mg Capsule PO 30 mg BEDTIME PRN Administration Sleep Allergies Allergies Allergy/AdvReac Type Severity Reaction Status Date / Time bee pollen [BEE STINGS] Allergy Unknown ANAPHYLAXIS Verified 04/07/20 18:32 Sulfa (Sulfonamide Allergy Unknown HIVES Verified 04/07/20 18:32 Antibiotics) [SULFA (SULFONAMIDE ANTIBIOTICS)] trazodone Allergy Unknown Unknown Verified 04/08/20 00:09 Assessment & Plan Assessment & Plan (1) Bipolar affective, mixed, severe: Status: Acute Code(s): F31.63 - Bipolar disorder, current episode mixed, severe, without psychotic features Assessment and Plan: Increase gabapentin CT current treatment plan Greater than 50% of the session was spent on counseling and/or coordination of care Patient educated on: diagnosis and medication risk/benefits Informed Consent: further education needed Reason for contiued inpatient stay Substantial Risk for: rapid decompensation
[2020-04-15 17:12] VITALS: BP 134/82; PULSE 77; TEMP 36.7
[2020-04-15] MEDS: Lithium Carbonate ER 450 MG TABLET.ER 900 MG PO (20:27)
[2020-04-15] MEDS: lamoTRIgine 100 MG TABLET PO (20:27)
[2020-04-15] MEDS: Temazepam 15 MG CAPSULE 30 MG PO (20:33)
[2020-04-16 06:59] VITALS: BP 107/69; PULSE 83; TEMP 36.6
[2020-04-16] MEDS: Gabapentin 300 MG CAPSULE PO ×3 (08:47→20:00)
[2020-04-16] MEDS: Lithium Carbonate ER 300 MG TABLET.ER 600 MG PO (08:47)
[2020-04-16] MEDS: estradioL 0.5 MG TABLET 2 MG PO (08:47)
[2020-04-16] MEDS: LORazepam 1 MG TABLET PO ×3 (08:47→20:01)
[2020-04-16] MEDS: HaloperidoL 5 MG TABLET PO ×3 (08:47→20:00)
[2020-04-16] MEDS: Benztropine Mesylate 0.5 MG TABLET 1 MG PO ×3 (11:19→19:58)
[2020-04-16] MEDS: Milk of Magnesia 30 ML ORAL.SUSP PO (13:33)
--- NOTE | 2020-04-16 15:14 | P.PNPSI_ITS ---
Subjective Subjective Date of Service: 04/16/20 Reason For Visit: Crisis Subjective Notes: Conditional Voluntary Interim History: Tamara was feeling Medication Compliance: Yes Side effects from medications: No Attending Groups: Intermittent Review of Systems Acute medical concerns: No Medical Review of Systems: unchanged Mental Status Exam Mental Status Exam Patient Appearance: Well Grooomed and Appropriate Patient Orientation: Person, Place, Time and Situation Level of Consciousness: Awake and Appropriate Patient Behavior: Cooperative and Suspicious Mood Description: Labile Affect Description: Constricted and Hostile (at times) Patient Cognition Impaired: Yes Ability to Follow Directions: Good Speech Pattern: Clear and Appropriate Memory Description: Intact Hallucinations: None Delusions: Not Present Thought Process: Intact Thought Content: positive for Intact, negative for Suicidal Ideation and negative for Homicidal Ideation Judgement: Fair Diagnostics Vital Signs (24Hr): Vital Signs - 24 hr 04/15/20 17:12 04/16/20 06:59 Temperature 98.0 F 97.8 F Pulse Rate 77 83 Blood Pressure 134/82 107/69 Body Mass Index 25.1 Labs Results: 04/07/20 13:51 04/08/20 07:56 Medications Medications Current Medications Generic Name Dose Route Start Last Admin Trade Name Freq PRN Reason Stop Dose Admin Acetaminophen 650 mg 04/07/20 20:08 Acetaminophen 325 Mg Tablet PO Q6H PRN Headache/Pain Mild Scale (1-3) Al Hydroxide/Mg Hydroxide 30 ml 04/07/20 20:08 Magnesium Hydrox/Alum Hydrox 30 Ml Oral.Susp PO Q6H PRN Heartburn/Nausea Benztropine Mesylate 1 mg 04/12/20 15:00 04/16/20 14:28 Benztropine Mesylate 0.5 Mg Tablet PO 1 mg TID AMARIS Administration Estradiol 2 mg 04/08/20 09:00 04/16/20 08:47 Estradiol 0.5 Mg Tablet PO 2 mg DAILY AMARIS Administration Gabapentin 300 mg 04/15/20 15:00 04/16/20 14:28 Gabapentin 300 Mg Capsule PO 300 mg TID AMARIS Administration Gabapentin 300 mg 04/15/20 11:21 04/15/20 11:43 Gabapentin 300 Mg Capsule PO 300 mg TID PRN Administration breakthrough anxiety Haloperidol 5 mg 04/11/20 10:45 04/15/20 14:38 Haloperidol 5 Mg Tablet PO 5 mg BID PRN Administration agitation Haloperidol 5 mg 04/12/20 15:00 04/16/20 14:28 Haloperidol 5 Mg Tablet PO 5 mg TID AMARIS Administration Hydroxyzine HCl 50 mg 04/08/20 00:03 04/14/20 21:33 Hydroxyzine Hcl 50 Mg Tablet PO 50 mg BEDTIME PRN Administration Insomnia Lamotrigine 100 mg 04/15/20 21:00 04/15/20 20:27 Lamotrigine 100 Mg Tablet PO 100 mg BEDTIME AMARIS Administration [place] Carbonate 900 mg 04/09/20 21:00 04/15/20 20:27 [place] Carbonate Er 450 Mg Tablet.Er PO 900 mg BEDTIME AMARIS Administration [place] Carbonate 600 mg 04/09/20 09:00 04/16/20 08:47 [place] Carbonate Er 300 Mg Tablet.Er PO 600 mg DAILY AMARIS Administration Lorazepam 1 mg 04/08/20 09:40 04/14/20 21:35 Lorazepam 1 Mg Tablet PO 1 mg Q4H PRN Administration Anxiety Lorazepam 1 mg 04/12/20 15:00 04/16/20 14:28 Lorazepam 1 Mg Tablet PO 1 mg TID AMARIS Administration Magnesium Hydroxide 30 ml 04/07/20 20:08 04/16/20 13:33 Milk Of Magnesia 30 Ml Oral.Susp PO 30 ml DAILY PRN Administration Constipation Non-Formulary Medication 1 applic 04/07/20 20:32 Estradiol VAGINAL 2XW [facility] Patient Own 2 each 04/13/20 21:00 04/16/20 08:48 Medication ( PO 2 each Asenapine 5 Mg) BID AMARIS Administration Temazepam 30 mg 04/12/20 20:37 04/15/20 20:33 Temazepam 15 Mg Capsule PO 30 mg BEDTIME PRN Administration Sleep Allergies Allergies Allergy/AdvReac Type Severity Reaction Status Date / Time bee pollen [BEE STINGS] Allergy Unknown ANAPHYLAXIS Verified 04/07/20 18:32 Sulfa (Sulfonamide Allergy Unknown HIVES Verified 04/07/20 18:32 Antibiotics) [SULFA (SULFONAMIDE ANTIBIOTICS)] trazodone Allergy Unknown Unknown Verified 04/08/20 00:09 Assessment & Plan Assessment & Plan (1) Bipolar affective, mixed, severe: Status: Acute Code(s): F31.63 - Bipolar disorder, current episode mixed, severe, without psychotic features Assessment and Plan: CT current plan Greater than 50% of the session was spent on counseling and/or coordination of care Patient educated on: diagnosis and medication risk/benefits Informed Consent: further education needed Reason for contiued inpatient stay Substantial Risk for: inability to function and rapid decompensation
[2020-04-16] MEDS: Magnesium Citrate 300 ML SOLUTION 150 ML PO (16:15)
[2020-04-16 18:00] VITALS: BP 108/68; PULSE 78; TEMP 37
[2020-04-16 19:56] LABS: Lamotrigine Lamictal <0.5 mcg/mL (4.0-18.0)
[2020-04-16] MEDS: lamoTRIgine 100 MG TABLET PO (20:00)
[2020-04-16] MEDS: Lithium Carbonate ER 450 MG TABLET.ER 900 MG PO (20:01)
[2020-04-16] MEDS: Temazepam 15 MG CAPSULE 30 MG PO (20:10)
[2020-04-17 06:15] VITALS: BP 117/74; PULSE 75; RESP 16; TEMP 36.3; O2SAT 98
[2020-04-17] MEDS: Gabapentin 300 MG CAPSULE PO ×3 (08:48→20:15)
[2020-04-17] MEDS: estradioL 0.5 MG TABLET 2 MG PO (08:48)
[2020-04-17] MEDS: HaloperidoL 5 MG TABLET PO ×3 (08:48→20:16)
[2020-04-17] MEDS: Lithium Carbonate ER 300 MG TABLET.ER 600 MG PO (08:48)
[2020-04-17] MEDS: LORazepam 1 MG TABLET PO ×3 (08:48→20:15)
[2020-04-17] MEDS: Benztropine Mesylate 0.5 MG TABLET 1 MG PO ×3 (08:48→20:15)
--- NOTE | 2020-04-17 11:08 | HO.PSYCHPN ---
Subjective Subjective Date of Service: 04/17/20 Reason For Visit: Crisis Subjective Notes: Conditional Voluntary Interim History: Tamara continues to be brighter and calmer. She has been feeling more at peace with herself. Lamictal level was low. We agreed to leave things as they are since she is improving. Medication Compliance: Yes Side effects from medications: No Attending Groups: Intermittent Review of Systems Acute medical concerns: No Medical Review of Systems: unchanged Mental Status Exam Mental Status Exam Patient Appearance: Well Grooomed and Appropriate Patient Orientation: Person, Place, Time and Situation Level of Consciousness: Awake and Appropriate Patient Behavior: Appropriate and Cooperative Mood Description: Calm Affect Description: Calm Patient Cognition Impaired: No Ability to Follow Directions: Good Speech Pattern: Clear and Appropriate Memory Description: Intact Hallucinations: None Delusions: Not Present Thought Process: Intact Thought Content: positive for Intact, negative for Suicidal Ideation and negative for Homicidal Ideation Judgement: Fair Diagnostics Vital Signs (24Hr): Vital Signs - 24 hr 04/16/20 18:00 04/17/20 06:15 Temperature 98.6 F 97.3 F Pulse Rate 78 75 Respiratory Rate 16 Blood Pressure 108/68 117/74 Pulse Oximetry 98 Body Mass Index 25.1 Labs Results: 04/07/20 13:51 04/08/20 07:56 Labs: Laboratory Results - last 48 hr 04/12/20 07:55 Lamotrigine <0.5 L Medications Medications Current Medications Generic Name Dose Route Start Last Admin Trade Name Freq PRN Reason Stop Dose Admin Acetaminophen 650 mg 04/07/20 20:08 Acetaminophen 325 Mg Tablet PO Q6H PRN Headache/Pain Mild Scale (1-3) Al Hydroxide/Mg Hydroxide 30 ml 04/07/20 20:08 Magnesium Hydrox/Alum Hydrox 30 Ml Oral.Susp PO Q6H PRN Heartburn/Nausea Benztropine Mesylate 1 mg 04/12/20 15:00 04/17/20 08:48 Benztropine Mesylate 0.5 Mg Tablet PO 1 mg TID AMARIS Administration Estradiol 2 mg 04/08/20 09:00 04/17/20 08:48 Estradiol 0.5 Mg Tablet PO 2 mg DAILY AMARIS Administration Gabapentin 300 mg 04/15/20 15:00 04/17/20 08:48 Gabapentin 300 Mg Capsule PO 300 mg TID AMARIS Administration Gabapentin 300 mg 04/15/20 11:21 04/15/20 11:43 Gabapentin 300 Mg Capsule PO 300 mg TID PRN Administration breakthrough anxiety Haloperidol 5 mg 04/11/20 10:45 04/15/20 14:38 Haloperidol 5 Mg Tablet PO 5 mg BID PRN Administration agitation Haloperidol 5 mg 04/12/20 15:00 04/17/20 08:48 Haloperidol 5 Mg Tablet PO 5 mg TID AMARIS Administration Hydroxyzine HCl 50 mg 04/08/20 00:03 04/14/20 21:33 Hydroxyzine Hcl 50 Mg Tablet PO 50 mg BEDTIME PRN Administration Insomnia Lamotrigine 100 mg 04/15/20 21:00 04/16/20 20:00 Lamotrigine 100 Mg Tablet PO 100 mg BEDTIME AMARIS Administration [place] Carbonate 900 mg 04/09/20 21:00 04/16/20 20:01 [place] Carbonate Er 450 Mg Tablet.Er PO 900 mg BEDTIME AMARIS Administration [place] Carbonate 600 mg 04/09/20 09:00 04/17/20 08:48 [place] Carbonate Er 300 Mg Tablet.Er PO 600 mg DAILY AMARIS Administration Lorazepam 1 mg 04/08/20 09:40 04/14/20 21:35 Lorazepam 1 Mg Tablet PO 1 mg Q4H PRN Administration Anxiety Lorazepam 1 mg 04/12/20 15:00 04/17/20 08:48 Lorazepam 1 Mg Tablet PO 1 mg TID AMARIS Administration Magnesium Hydroxide 30 ml 04/07/20 20:08 04/16/20 13:33 Milk Of Magnesia 30 Ml Oral.Susp PO 30 ml DAILY PRN Administration Constipation Non-Formulary Medication 1 applic 04/07/20 20:32 Estradiol VAGINAL 2XW [facility] Patient Own 2 each 04/13/20 21:00 04/17/20 08:48 Medication ( PO 2 each Asenapine 5 Mg) BID AMARIS Administration Temazepam 30 mg 04/12/20 20:37 04/16/20 20:10 Temazepam 15 Mg Capsule PO 30 mg BEDTIME PRN Administration Sleep Allergies Allergies Allergy/AdvReac Type Severity Reaction Status Date / Time bee pollen [BEE STINGS] Allergy Unknown ANAPHYLAXIS Verified 04/07/20 18:32 Sulfa (Sulfonamide Allergy Unknown HIVES Verified 04/07/20 18:32 Antibiotics) [SULFA (SULFONAMIDE ANTIBIOTICS)] trazodone Allergy Unknown Unknown Verified 04/08/20 00:09 Assessment & Plan Assessment & Plan (1) Bipolar affective, mixed, severe: Status: Acute Code(s): F31.63 - Bipolar disorder, current episode mixed, severe, without psychotic features Assessment and Plan: Continue current treatment plan Greater than 50% of the session was spent on counseling and/or coordination of care Patient educated on: diagnosis and medication risk/benefits Informed Consent: understands Reason for contiued inpatient stay Substantial Risk for: rapid decompensation
[2020-04-17] MEDS: Acetaminophen 325 MG TABLET 650 MG PO ×2 (15:19→23:29)
[2020-04-17 18:00] VITALS: BP 122/89; PULSE 80; TEMP 37
[2020-04-17] MEDS: lamoTRIgine 100 MG TABLET PO (20:15)
[2020-04-17] MEDS: Lithium Carbonate ER 450 MG TABLET.ER 900 MG PO (20:16)
[2020-04-17] MEDS: Temazepam 15 MG CAPSULE 30 MG PO (20:17)
--- NOTE | 2020-04-17 21:14 | PC.NURSE ---
pt Tamara Fair given PRN 30 mg bedtime Temazepam at 20:17. Medication was discontinued after the medication was given. Provider may or may not renew medication. Provider will re-evaluate in the am
[2020-04-17] MEDS: hydrOXYzine HCL 50 MG TABLET PO (23:28)
[2020-04-18 06:15] VITALS: BP 94/51; PULSE 60; RESP 16; TEMP 36; O2SAT 98
[2020-04-18] MEDS: LORazepam 1 MG TABLET PO ×3 (09:04→20:25)
[2020-04-18] MEDS: estradioL 0.5 MG TABLET 2 MG PO (09:04)
[2020-04-18] MEDS: Benztropine Mesylate 0.5 MG TABLET 1 MG PO ×3 (09:04→20:26)
[2020-04-18] MEDS: Gabapentin 300 MG CAPSULE PO ×3 (09:04→20:26)
[2020-04-18] MEDS: HaloperidoL 5 MG TABLET PO ×3 (09:04→20:26)
[2020-04-18] MEDS: Lithium Carbonate ER 300 MG TABLET.ER 600 MG PO (09:04)
--- NOTE | 2020-04-18 13:28 | P.PNPSI_ITS ---
Subjective Subjective Date of Service: 04/18/20 Reason For Visit: Crisis Subjective Notes: Conditional Voluntary Interim History: Tamara continues to be more positive and accepting of her situation. She states that she would like to start DC planning. Medication Compliance: Yes Side effects from medications: No Attending Groups: Yes Review of Systems Acute medical concerns: No Medical Review of Systems: unchanged Mental Status Exam Mental Status Exam Patient Appearance: Well Grooomed and Appropriate Patient Orientation: Person, Place, Time and Situation Level of Consciousness: Awake and Appropriate Patient Behavior: Appropriate and Cooperative Mood Description: Calm Affect Description: Calm Patient Cognition Impaired: No Ability to Follow Directions: Good Speech Pattern: Clear and Appropriate Memory Description: Intact Hallucinations: None Delusions: Not Present Thought Process: Intact Thought Content: positive for Intact, negative for Suicidal Ideation and negative for Homicidal Ideation Judgement: Fair Diagnostics Vital Signs (24Hr): Vital Signs - 24 hr 04/17/20 18:00 04/18/20 06:15 Temperature 98.6 F 96.8 F Pulse Rate 80 60 Respiratory Rate 16 Blood Pressure 122/89 94/51 L Pulse Oximetry 98 Body Mass Index 25.1 Labs Results: 04/07/20 13:51 04/08/20 07:56 Labs: Laboratory Results - last 48 hr 04/12/20 07:55 Lamotrigine <0.5 L Medications Medications Current Medications Generic Name Dose Route Start Last Admin Trade Name Randy PRN Reason Stop Dose Admin Acetaminophen 650 mg 04/07/20 20:08 04/17/20 23:29 Acetaminophen 325 Mg Tablet PO 650 mg Q6H PRN Administration Headache/Pain Mild Scale (1-3) Al Hydroxide/Mg Hydroxide 30 ml 04/07/20 20:08 Magnesium Hydrox/Alum Hydrox 30 Ml Oral.Susp PO Q6H PRN Heartburn/Nausea Benztropine Mesylate 1 mg 04/12/20 15:00 04/18/20 09:04 Benztropine Mesylate 0.5 Mg Tablet PO 1 mg TID AMARIS Administration Estradiol 2 mg 04/08/20 09:00 04/18/20 09:04 Estradiol 0.5 Mg Tablet PO 2 mg DAILY AMARIS Administration Gabapentin 300 mg 04/15/20 15:00 04/18/20 09:04 Gabapentin 300 Mg Capsule PO 300 mg TID AMARIS Administration Gabapentin 300 mg 04/15/20 11:21 04/15/20 11:43 Gabapentin 300 Mg Capsule PO 300 mg TID PRN Administration breakthrough anxiety Haloperidol 5 mg 04/11/20 10:45 04/15/20 14:38 Haloperidol 5 Mg Tablet PO 5 mg BID PRN Administration agitation Haloperidol 5 mg 04/12/20 15:00 04/18/20 09:04 Haloperidol 5 Mg Tablet PO 5 mg TID AMARIS Administration Hydroxyzine HCl 50 mg 04/08/20 00:03 04/17/20 23:28 Hydroxyzine Hcl 50 Mg Tablet PO 50 mg BEDTIME PRN Administration Insomnia Lamotrigine 100 mg 04/15/20 21:00 04/17/20 20:15 Lamotrigine 100 Mg Tablet PO 100 mg BEDTIME AMARIS Administration [place] Carbonate 900 mg 04/09/20 21:00 04/17/20 20:16 [place] Carbonate Er 450 Mg Tablet.Er PO 900 mg BEDTIME AMARIS Administration [place] Carbonate 600 mg 04/09/20 09:00 04/18/20 09:04 [place] Carbonate Er 300 Mg Tablet.Er PO 600 mg DAILY AMARIS Administration Lorazepam 1 mg 04/17/20 21:00 04/18/20 09:04 Lorazepam 1 Mg Tablet PO 1 mg TID AMARIS Administration Magnesium Hydroxide 30 ml 04/07/20 20:08 04/16/20 13:33 Milk Of Magnesia 30 Ml Oral.Susp PO 30 ml DAILY PRN Administration Constipation Patient Own 2 each 04/13/20 21:00 04/18/20 09:04 Medication ( PO 2 each Asenapine 5 Mg) BID AMARIS Administration Allergies Allergies Allergy/AdvReac Type Severity Reaction Status Date / Time bee pollen [BEE STINGS] Allergy Unknown ANAPHYLAXIS Verified 04/07/20 18:32 Sulfa (Sulfonamide Allergy Unknown HIVES Verified 04/07/20 18:32 Antibiotics) [SULFA (SULFONAMIDE ANTIBIOTICS)] trazodone Allergy Unknown Unknown Verified 04/08/20 00:09 Assessment & Plan Assessment & Plan (1) Bipolar affective, mixed, severe: Status: Acute Code(s): F31.63 - Bipolar disorder, current episode mixed, severe, without psychotic features Assessment and Plan: CT current treatment plan Greater than 50% of the session was spent on counseling and/or coordination of care Patient educated on: diagnosis and medication risk/benefits Informed Consent: understands Reason for contiued inpatient stay Substantial Risk for: rapid decompensation
[2020-04-18] MEDS: Milk of Magnesia 30 ML ORAL.SUSP PO ×2 (16:00→20:42)
[2020-04-18 18:00] VITALS: BP 103/66; PULSE 71; TEMP 36.9
[2020-04-18] MEDS: Lithium Carbonate ER 450 MG TABLET.ER 900 MG PO (20:25)
[2020-04-18] MEDS: lamoTRIgine 100 MG TABLET PO (20:25)
[2020-04-18] MEDS: hydrOXYzine HCL 50 MG TABLET PO ×2 (20:34→22:37)
[2020-04-18] MEDS: Acetaminophen 325 MG TABLET 650 MG PO (22:34)
[2020-04-19] MEDS: LORazepam 1 MG TABLET PO (09:28)
[2020-04-19] MEDS: Gabapentin 300 MG CAPSULE PO (09:28)
[2020-04-19] MEDS: HaloperidoL 5 MG TABLET PO (09:28)
[2020-04-19] MEDS: Benztropine Mesylate 0.5 MG TABLET 1 MG PO (09:29)
[2020-04-19] MEDS: estradioL 0.5 MG TABLET 2 MG PO (09:29)
[2020-04-19] MEDS: Lithium Carbonate ER 300 MG TABLET.ER 600 MG PO (09:30)
--- NOTE | 2020-04-19 17:51 | P.DS_ITS ---
DS: Providers Provider Date of admission: 04/07/20 20:07 Primary care physician: Frank Velasquez MD DS: Diagnosis Discharge Diagnosis (1) Bipolar affective, mixed, severe: Status: Acute DS: Medications Discharge Medications Home Medications: Previous Rx's Medication Instructions Recorded asenapine maleate [Saphris] 10 mg SUBLINGUAL BID 30 Days #60 04/19/20 tab benztropine 1 mg PO BID PRN 60 Days #60 tab 04/19/20 estradiol 1 applic VAGINAL 2XW 30 Days #30 g 04/19/20 estradiol 1 tab PO DAILY 30 Days #30 tab 04/19/20 gabapentin 300 mg PO TID 30 Days #90 cap 04/19/20 haloperidol 5 mg PO BID PRN 30 Days #60 tab 04/19/20 lamotrigine 100 mg PO BEDTIME 30 Days #60 tab 04/19/20 lithium carbonate 600 mg PO DAILY 30 Days #60 tab 04/19/20 lithium carbonate 900 mg PO BEDTIME 30 Days #60 tab 04/19/20 lorazepam 1 mg PO TID PRN 30 Days #90 tab 04/19/20 temazepam 1 cap PO BEDTIME PRN 7 Days #7 cap 04/19/20 Discharge Plan Discharge Patient Disposition: Home, Self-Care Referrals: Dr. Ricardo Atkins, psychiatry, private practice [Other] - 04/22/20 6:00 pm Frank Velasquez MD [Primary Care Provider] - (THE OFFICE WILL CALL HER TOMORROW 04/20/20 WITH AN APPOINTMENT DATE.) Discharge Medications: New lithium carbonate 450 mg Tablet Extended Release 900 mg PO BEDTIME 30 Days Qty: 60 RF: 0 gabapentin 300 mg Capsule 300 mg PO TID 30 Days Qty: 90 RF: 0 benztropine 1 mg tablet 1 mg PO BID PRN (Reason: eps) 60 Days Qty: 60 RF: 0 haloperidol 5 mg Tablet 5 mg PO BID PRN (Reason: anxiety) 30 Days Qty: 60 RF: 0 lithium carbonate 300 mg Tablet Extended Release 600 mg PO DAILY 30 Days Qty: 60 RF: 0 lorazepam 1 mg Tablet 1 mg PO TID PRN (Reason: anxiety) 30 Days Qty: 90 RF: 0 lamotrigine 100 mg Tablet 100 mg PO BEDTIME 30 Days Qty: 60 RF: 0 Saphris 10 mg tablet, sublingual 10 mg sublingual BID 30 Days Qty: 60 RF: 0 Continued temazepam 30 mg capsule 1 cap PO BEDTIME PRN (Reason: Sleep) 7 Days Qty: 7 RF: 0 estradiol 2 mg tablet 1 tab PO DAILY 30 Days Qty: 30 RF: 0 estradiol 0.01 % (0.1 mg/gram) cream 1 applic vaginal 2XW 30 Days Qty: 30 RF: 0 Discontinued lamotrigine 200 mg tablet 1 tab PO DAILY RF: 0 lithium carbonate 300 mg tablet extended release 3 tab PO BID RF: 0 levothyroxine 25 mcg tablet 1 tab PO DAILY RF: 0 gabapentin 100 mg capsule 2 cap PO TID PRN (Reason: Anxiety) RF: 0 Saphris 5 mg tablet, sublingual 1 tab sublingual BID RF: 0 Discharge Orders: Discharge Order (Routine); Ordered 04/19/20 Ordered By: Silvestre Garrett Diet: regular diet Activity on Discharge: As tolerated Stand Alone Forms: Community Support Discharge Date/Time: 04/19/20 13:15 Visit Report Forms: Patient Portal Discharge page Care Plan Goals: Stabilize mood Health Concerns: Mood swings Job stress Plan of Treatment: F/U w Dr Atkins. DW Dr Atkins RTW at current job Ct meds and weekly therapy Data Data Completed and Pending Completed studies during hospitalization [Text1]: 04/12/20 04/12/20 07:55 08:10 TSH 0.03 L Lamotrigine <0.5 L DS: Summary Hospital Course Hospital Course: Referred by Dr Atkins for worsening mood, lability, fuzzy clouded thinking . Known Hx of severe TR bipolarity. Stressors: COVID related furlough and change in work duties, felt burntout, mood started to get labile, irritable, explosive. Interfered at group therapy at [facility] where pt is SW. Reports auto SI but no intent During last admission responded well to ECT and brief course of Haldol. Dr Atkins tried Rexulti and Vraylar. 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 X med failures: Latuda/VPA/Rexulti/TRLP. Pt was intensely labile, irritable . Notable interpersonal sensitivity. Often misconstrued staff interactions. Responded well to reassurance and clarification. Responded well to Scheduled Haldol + Lorazepam and increase in Saphris. Pt uncertain about work status. Would bring up early deprivation/trauma as she is adopted. Care was coordinated with Dr Atkins. [place] paperwork done. ECT was not indicated this time. At DC pt was stable, much improved Status at Discharge Functional status at discharge: independent ambulation Overall status at discharge: patient is progressing back to baseline Time Spent with Patient Time attestation: Total time spent providing and/or coordinating discharge services: Time spent: Greater than 30 minutes
== END 2020-04-19 13:15 | disposition home or self-care (01) | DRG 753 ==
LOC: HO.ED 19:37 → HO.PM5 20:17
PROVIDERS: Emergency Medicine; Admitting Provider Psychiatry & Neurology Psychiatry; Emergency Provider Emergency Medicine; PCP Family Medicine; Visit Provider Psychiatry & Neurology Psychiatry
DX: F31.63 Bipolar disorder, current episode mixed, severe, without psychotic features (principal); R45.851 Suicidal ideations; Z20.828 Contact with and (suspected) exposure to other viral communicable diseases; Z79.899 Other long term (current) drug therapy
CPT/HCPCS: 36415; 80048; 80053; 80061; 80076; 80175; 80178; 80307; 82947; 83036; 84439; 84443; 85025; 87635; 99223; 99232; 99239; 99285